=== PATIENT | female | born 1995 | race Caucasian/White ===

== ENCOUNTER 2024-08-09 10:12 | Outpatient (AMB) | payer BC, SELFPAY ==
--- OUTSIDE RECORDS SUMMARY | 2024-08-09 10:14 | XMS_ITS ---
Author Name [facility] Organization Unknown History of Medication Use Medication Directions Dispensed Refills Start Date End Date Stat Nortrel , 28, 1-35 MG-MCG per tablet Take 1 tablet by mouth daily. 05/03/2023 active predniSONE (DELTASONE) 20 MG tablet Take 2 tablets (40 mg total) by mouth daily. 05/03/2023 active Problems Problem Status Onset Date Problem Type Date of Resoluti on Source [facility]
--- NOTE | 2024-08-09 10:21 | MHC.OFFWIV ---
Intake Vital Signs 08/09/24 10:53 Height 5 ft 6 in Weight 154 lb BMI 24.9 BP 110/70 Blood Pressure Location Rt brachial Position Sitting Pulse 76 Pulse Source Pulse Oximeter Temp 98.0 F Temp Source Oral Pulse Oximetry (%) 98 Oxygen Delivery Method Room Air Intake Visit Reasons: sore throat/ chest congestion Intake Note: pt is here for sore throat and congestion Patient Tobacco Use Status: Never used Tobacco Allergies No Known Allergies Allergy (Verified 08/09/24 11:18) Medication List - Last Reconciled 08/09/24 by Jennifer Guthrie, [facility]- norethindrone-ethin estradiol 1-35 mg-mcg ([place]) 1 tab PO DAILY Do you need a note to return to daycare/school/sports/work: No HPI HPI Comments History of Present Illness Details History of Present Illness The patient is a 28-year-old female presenting with sore throat and chest congestion. The symptoms began recently and initially started with a sore throat, which progressed to chest congestion. The patient notes a scratchy quality to her sore throat, rather than pain. She reports potential exposure to family members who were ill during the holidays and attendance at a high school reunion, suggesting possible viral exposure. The patient took an [id number] medication for chest congestion at approximately 8:45 am on the day of the visit. She did not receive a flu vaccination this season. Additionally, the patient mentions that her wisdom tooth is erupting, contributing to her discomfort. She denies history of asthma and noted that she does not have an active cough, but experiences occasional coughing fits. The medication taken has provided limited relief, and the patient refrains from using other concurrent medications to avoid interactions. There are no reports of exposure to individuals with known respiratory illnesses such as influenza or COVID-19. Exam Awake alert NAD Sclera and conjunctiva clear bilat Nares patent, turbinates within normal limits, no sinus tenderness with palpation bilat TM intact and clear bilat MMM, pharynx mild erythema Negative strep test RRR LS CTAB Plan - Diagnosis of Viral Upper Respiratory Infection: Symptomatic management recommended with plenty of fluids to thin secretions and facilitate clearance. Use of nasal saline suggested for nasal congestion management. - Prescription of Tessalon Perles for cough suppression; advise not to combine with sqbu-dsw-ygfisly cough medications. Tessalon can be taken three times daily as needed. - Advice on maintaining hydration to assist in managing congestion. - Instruct to monitor for worsening symptoms, high fever, or persistence beyond 14 days, which may necessitate reevaluation for possible secondary bacterial infection. - Erupting [place] Tooth: Acknowledge patient?s discomfort; no immediate dental intervention required but recommended patient monitor symptoms as tooth continues to erupt. Patient was informed and verbally consented to the use of an ambient scribe for clinic note documentation during this visit. [facility] Social History Patient Tobacco Use Status: Never used Tobacco Physical Exam Vital Signs: Last Vital Signs Temp 98.0 F 08/09/24 10:53 Pulse 76 08/09/24 10:53 BP 110/70 08/09/24 10:53 Pulse Ox 98 08/09/24 10:53 Oxygen Delivery Method Room Air 08/09/24 10:53 BMI result Body Mass Index 24.9 Results AMB Rapid Strep AMB Rapid Strep Negative Last Edit by Joe Montalvo CMA on 08/09/24 11:04 Results Reviewed Results Reviewed: Laboratory Last Values Strep Scn Rapid Clinic Negative 08/09/24 11:03 Assessment & Plan Assessment & Plan (1) Nasopharyngitis: Code(s): J00 - Acute nasopharyngitis [common cold] Plan . Orders: Orders AMB Rapid Strep Screen Today Z13.9 - Encounter for screening, unspecified Medications: New benzonatate 100 mg PO TID 10 days PRN 30 caps 1RF cough Coding Level of Care Code Est Pt Level 3 (90364) Diagnoses Nasopharyngitis J00
[2024-08-09 10:53] VITALS: BP 110/70; PULSE 76; TEMP 36.7; O2SAT 98; BMI 24.9
== END 2024-08-09 11:27 | disposition home or self-care (01) ==
LOC: HO.HMCWIW 10:12
PROVIDERS: PCP Nurse Practitioner Family; Visit Provider Nurse Practitioner Family
DX: J00 Acute nasopharyngitis [common cold] (principal); Z13.9 Encounter for screening, unspecified

== ENCOUNTER → 2024-08-09 10:12 | Outpatient (BNVA) | payer BC, SELFPAY | PROVIDERS: PCP Nurse Practitioner Family; Visit Provider Nurse Practitioner Family | DX: J00 Acute nasopharyngitis [common cold] (principal) | CPT/HCPCS: 87880 ==

== ENCOUNTER 2025-01-19 08:25 | Outpatient (AMB) | payer BC, SELFPAY ==
--- NOTE | 2025-01-19 08:28 | A.OFFPC_ITS ---
Vital Signs 01/19/25 08:35 Height 5 ft 6 in Weight 150 lb BMI 24.2 BP 98/66 Blood Pressure Location Lt brachial Position Sitting Respiration 12 Pulse 64 Pulse Source Pulse Oximeter Temp 97.6 F Temp Source Oral Pulse Oximetry (%) 99 Oxygen Delivery Method Room Air Intake Visit Reasons: CPE Intake Note: New patient to establish care and cpe Sifter Operator Required: No Allergies No Known Allergies Allergy (Verified 01/19/25 08:40) Medication List - Last Reconciled 01/19/25 by Jennifer Guthrie, [facility]- norethindrone-ethin estradiol 1-35 mg-mcg (Alyacen) 1 tab PO DAILY Tobacco use date assessed: 01/19/25 Dental Screening Dental Screen Date: 01/19/25 Did you have a dental visit in the last 12 months?: Yes Did you have a dental problem in the last 6 months where you did not have access to dental care?: No Was dental information given to patient?: Patient has dentist HPI HPI Comments History of Present Illness Details 29 y/o F with family hx of skin ca (mom) otherwise healthy. Fhx: Dad HLD, MGM with aortic anuersym, Mom skin ca, MGF , PGF alive; PGM alive. Siblings 1 brother alive and well. No Children. Surgery: Sully tooth extraction Social: work in [employer]; lives w/ boyfriend. Health Maintenance Tdap updated today Pap December 2024 Dr Luna * [facility] Dentist Derm History of Present Illness - The patient is a 29-year-old female pr esenting for the establishment of care and routine health maintenance. -Previous PCP [facility], records rec'd a nd reviewed - Family history: Skin cancer (mother), aortic aneurysm (maternal grandmother). - Mole on her hairline reported, new 1 y ear ago; no changes observed. - Historical wisdom teeth removal; no ot her surgeries. - No known medication allergies; only us ing control. - Denies significant ongoing health issu es; desires dermatology assessment due to family history. Past Surgical History - Sully teeth extraction Family History - Mother: History of skin cancer - Maternal grandmother: Aortic aneurysm - Father: Hyperlipidemia - Father: No confirmed history of prosta te cancer - Paternal uncle: Varicose veins Social History - Works in [employer] - Resides with her boyfriend. - Recently attended college in [place]. - Activities include playing softball. - No reports of tobacco or alcohol use. Health Maintenance - Pap smear confirmed as normal; monitor ed by OBGYN. Review of Systems - Dermatologic: Reports a stable mole at her hairline. - Cardiovascular: Denies chest pain, navya rtness of breath. - Surgical: Denies other surgeries besid es wisdom teeth removal. - Respiratory: Denies shortness of breat h. - General: Denies current health concern s. Physical Exam General: Well developed, well nourished, in no acute distress. Appears stated age. Head: Normocephalic, atraumatic. Eyes: Pupils are equal, round and reactive to light and accommodation. Conjunctivae are clear. Vision grossly normal. Ears: TMs clear AU, EACS WNL Nose: Patent, without discharge. Neck: Supple, no adenopathy or thyromegaly. Breast: Edu on SBE. Patient could be better at self-exams; advised to perform one week after period or on a set date each month. Lungs: Clear to auscultation bilaterally. No rales, rhonchi or wheeze noted. Good air flow in all husain. Heart: Regular rate and rhythm. No murmurs, click, rubs or gallops are noted. Abdomen: Bowel sounds present in all quadrants. The abdomen is soft, nontender, with no masses or organomegaly noted. No hernias are noted. : Deferred. Reviewed recommendations for routine ROAD CONDUCTOR. Pulses: Peripheral pulses are equal and palpable bilaterally. Nice strong pulses noted in legs. Extremities: No clubbing, cyanosis nor edema is noted. Neurologic: Gait and station normal. Cranial Nerves 2-12 intact. Motor strength grossly symmetrical and intact. No sensory loss. Balance normal. Skin: No rashes, ulcers, or lesions noted. Turgor is good. Skin color is good. Hair and nails are without abnormalities. Noted a mole on the hairline and a pale mole on the back; dermatology referral made for further evaluation. Psych: Normal eye contact, affect and mood appropriate, and normal interactions. Patient is alert and appropriate to context. Results Pending Discussion Notes Emphasizing her maternal legacy involving skin cancer, there was a significant conversation centered around connecting her with a molder labels for routine surveillance to monitor potentially hereditary risks. I also reviewed her vaccination status and recommended a tetanus booster since it had been over ten years. I explained the importance of scheduling periodic baseline labs?targeting cholesterol, diabetes markers, and essential vitamins?to maintain her overall health. The patient was shown how to navigate our patient portal to access lab results and stay in communication with our facility. Additionally, I discussed the preventive value of self-breast exams and the recent concern about a mole on her hairline, reassuring her about seeking dermatologic consultation for thorough evaluation. Assessment and Plan Family history of aortic aneurysm - Record history; monitor if necessary. Denies any sx; Mom negative for AAA. - Tetanus shot last updated in 2007; rec ommended update today. - Dermatology referral for a routine ski n check due to the family history of skin cancer. - Baseline screening labs recommended: c holesterol, diabetes screening, blood count, thyroid, kidney, liver, B12, and vitamin D. - Encouraged to consider self-breast exa mination regularly after periods. Patient Instructions - Schedule a dermatology appointment for a safe skin evaluation. - Consider a tetanus booster for updated immunization. - Follow up on recommended labs. - Regularly check skin, especially moles . - Download portal [place] for communication and result access. - Keep hydrated, incorporating balanced nutrition and moderate exercise. RTO 1 YEAR CPE, SOONER PRN Consent Patient was informed and verbally consented to the use of an ambient scribe for clinic note documentation during this visit. An additional 20 minutes was spent addressing the problem(s) noted at todays visit. This includes time spent before the visit reviewing the chart, time spent during the visit, and time spent after the visit on documentation reviewing laboratory results, diagnostic imaging, medications, performing a medically necessary evaluation, counseling on diagnoses, care coordination, ordering appropriate tests, ordering appropriate medications, review of tests performed by other providers, reporting test results with the patient, communication with other healthcare providers. [facility] Medical History (Updated 01/19/25 @ 08:54 by [facility] No pertinent past medical history Surgical History (Updated 01/19/25 @ 08:38 by Denisse Loaiza MA) No pertinent past surgical history Family History (Updated 01/19/25 @ 08:39 by Denisse Loaiza MA) Father High cholesterol Mother Skin cancer Social History (Updated 01/19/25 @ 08:39 by Denisse Loaiza MA) Household Members: Significant Other Housing: House Are you a primary urgent care nurse practitioner to a significant other at home: No Do you presently have visiting nurse or other home services: No Alcohol intake: current Alcohol intake frequency: a few times a month Patient Tobacco Use Status: Never used Tobacco e-Cigarette/Vaping Use: Never Used Second Hand Smoke Exposure: No Current occupational status: employed Current occupation: accounting Cognitive needs: No Hearing needs: No Vision needs: Yes (wear glasses) Questionnaire PHQ-9 Over the last 2 weeks, how often have you been bothered by any of the following problems? 1. Little interest or pleasure in doing things: not at all 2. Feeling down, depressed, or hopeless: not at all 3. Trouble falling or staying asleep, or sleeping too much: not at all 4. Feeling tired or having little energy: not at all 5. Poor appetite or overeating: not at all 6. Feeling bad about yourself - or that you are a failure or have let yourself or your family down: not at all 7. Trouble concentrating on things, such as reading the newspaper or watching television: not at all 8. Moving or speaking so slowly that other people could have noticed. Or the opposite - being so fidgety or restless that you have been moving around a lot more than usual: not at all 9. Thoughts that you would be better off or of hurting yourself in some way: not at all Total score: 0 Depression Screening Interpretation: Negative Depression Screening Done: Yes 49344 - PHQ-9 Billing: Yes Source: Developed by Drs. Karlos Thomas, Natasha Acuña, Baldev Joseph and colleagues, with an educational darnell from [facility] EHR. Thrive Questionnaire Date Thrive assessed: 01/19/25 I am a: Patient What is your living situation today?: I have a steady place to live Within the past 12 months, did the food you bought not last and you didn't have the money to get more?: Never true Within the past 12 months, did you worry whether your food would run out before you got money to buy more?: Never true Do you have trouble paying for medicines?: No Do you have trouble getting transportation to medical appointments?: No Do you have trouble paying your heating and electricity bill?: No Do you have trouble taking care of your child, family member or friend?: No Do you have trouble with day-to-day activities such as bathing, preparing meals, shopping, managing finances, etc.?: No Are you currently unemployed and looking for a job?: No Are you interested in more education?: No Please select the resources that you would like help with: None Currently or been in a relationship where the following occur: No concerns reported THRIVE Score: 0 AUDIT C Alcohol Use Questionnaire (AUDIT-C) 1. How often do you have a drink containing alcohol?: 2-4 times a month 2. How many drinks containing alcohol do you have on a typical day when you are drinking?: 3 or 4 3. How often do you have six or more drinks on one occasion?: Less than monthly Total Score: 4 Score Reviewed/Action Taken: Yes CALEB-7 AMB Questionnaire CALEB-7 Date CALEB - 7 assessed: 01/19/25 Feeling nervous, anxious, or on edge: 1 = Several days Not being able to stop or control worryin = Not at all Worrying too much about different things: 0 = Not at all Trouble relaxin = Not at all Being so restless that it is hard to sit still: 0 = Not at all Becoming easily annoyed or irritable: 1 = Several days Feeling afraid as if something awful might happen: 0 = Not at all Total CALEB-7 score (0-4 normal; 5-9 mild; 10-14 moderate; 15-21 severe): 2 Source: Developed by Drs. Karlos Thomas, Natasha Acuña, Baldev Joseph and colleagues, with an educational darnell from [facility] EHR. CALEB-7 Assessment Billing CALEB-7 Assessment Tool: CALEB-7 Assessment 51871 Physical exam (Primary Care) Vital Signs: Last Vital Signs Temp 97.6 F 01/19/25 08:35 Pulse 64 01/19/25 08:35 Resp 12 01/19/25 08:35 BP 98/66 01/19/25 08:35 Pulse Ox 99 01/19/25 08:35 Oxygen Delivery Method Room Air 01/19/25 08:35 BMI result Body Mass Index 24.2 Tobacco/Smoking Status: Tobacco use Status Tobacco use date assessed 01/19/25 01/19/25 08:32 Patient Tobacco Use Status Never used Tobacco 01/19/25 08:39 e-Cigarette/Vaping Use Never Used 01/19/25 08:39 PHQ-9: PHQ-9 Score PHQ-9: Total score 0 01/19/25 08:45 Depression Screening Interpretation: Negative Thrive Assessment: Date of Thrive Assessment Date Thrive assessed 01/19/25 01/19/25 08:32 Currently or been in a relationship where the following occur: No concerns reported Coding Level of Care Code New Pt Level 2 (47716) New Pt Prev Care 18-39yr(92933 Diagnoses Encounter to establish care with new doctor Z76.89 Family history of skin cancer Z80.8 Family history of aortic aneurysm Z82.49 Laboratory exam ordered as part of routine general medical examination Z00.00 Need for Tdap vaccination Z23 Additional Codes CALEB-7 Assessment Billing - CALEB-7 Assessment Tool: CALEB-7 Assessment 37553 ([id number]) PHQ-9 - 68749 - PHQ-9 Billing: Yes ([id number]) Assessment & Plan Assessment & Plan (1) Encounter to establish care with new doctor: Code(s): Z76.89 - Persons encountering health services in other specified circumstances (2) Family history of skin cancer: Comment: Mom - nonmelanoma Code(s): Z80.8 - Family history of malignant neoplasm of other organs or systems Category: Medical (3) Family history of aortic aneurysm: Comment: MG Code(s): Z82.49 - Family history of ischemic heart disease and other diseases of the circulatory system Category: Medical (4) Laboratory exam ordered as part of routine general medical examination: Code(s): Z00.00 - Encounter for general adult medical examination without abnormal findings Category: Medical (5) Need for Tdap vaccination: Code(s): Z23 - Encounter for immunization Category: Medical Plan . Orders: Orders Comprehensive Met. Panel Today Z00.00 - Encounter for general adult medical examination without abnormal findings Ferritin Today Z00.00 - Encounter for general adult medical examination without abnormal findings Hemoglobin A1c Today Z00.00 - Encounter for general adult medical examination without abnormal findings Lipid Panel Today Z00.00 - Encounter for general adult medical examination without abnormal findings TSH reflex Free T4 Today Z00.00 - Encounter for general adult medical examination without abnormal findings Vitamin D 25-OH Total Today Z00.00 - Encounter for general adult medical examination without abnormal findings Complete Blood Count no Diff Today Z00.00 - Encounter for general adult medical examination without abnormal findings Vitamin B12 and Folate Today Z00.00 - Encounter for general adult medical examination without abnormal findings TDaP Immunization Today Z23 - Encounter for immunization Referrals Dermatology Referral Z80.8 - Family history of malignant neoplasm of other organs or systems Medications: New Boostrix Tdap (diphth,pertus(acell),tetanus) 0.5 mL IM ONCE 0.5 mL 0RF NS Z23 - Encounter for immunization Patient Instructions: Walk-In Care (Urgent Care): We Make it Easy Walk-in for urgent medical issues such as: ? Seasonal Allergies ? Insect Bites ? Cough ? Diarrhea ? Acute Asthma Attacks ? Back, Knee or Joint Pain ? Ear Infection ? Fever without a Rash ? Headaches ? Nausea ? [place] [facility], Rash or Skin Irritation ? Sore Throat ? Sports Physicals ? Vomiting Most insurances are accepted. Patients do not need to be part of the [facility] to seek care at the walk-in clinic. Locations [facility] , [place] [address] ? [phone] [facility] Walk-In Care in [place] provides services to ages 18 and over. Open Thursday-Thursday: 8 a.m. to 5 p.m. and Thursday: 9 a.m. to 3 p.m.* *Hours may vary due to staffing availability. To confirm Walk-In Care hours in [place], please call [phone]. [address] [place] [address] ? [phone] [facility] Walk-In Care in [place] provides services to ages 12 and over. Open Thursday-Thursday: 8 a.m. to 5 p.m. Hours may vary due to staffing availability. To confirm Walk-In Care hours in [place], please call [phone]. LABORATORY SERVICES: [facility] Lab ? Primary Location [address] [place] [address] Thursday through Thursday 6:00 AM ? 5:00 PM Thursday 7:00 AM ? 11:00 AM* [phone] The [facility] Lab is centrally located near the front entrance of the [facility] for easy outpatient access. Convenient parking is provided for outpatients. *Hours may vary due to staffing availability. To confirm Laboratory hours for any location, please call [phone]. Offsite Location For your convenience, we offer offsite laboratory draw stations at the following locations: [address] [facility], [place] ? [facility] [address], [address], [place] Thursday through Thursday 7:30 AM ? 1:00 PM* [phone] *Hours may vary due to staffing availability. To confirm Laboratory hours for any location, please call [phone]. [place] ? [facility] [address] [facility] Thursday through Thursday 6:00 AM ? 3:30 PM* Thursday 6:30 AM ? 3 PM* [phone] *Hours may vary due to staffing availability. To confirm Laboratory hours for any location, please call [phone] [place] [address] Thursday through Thursday 7:30 AM ? 4:00 PM* [phone] *Hours may vary due to staffing availability. To confirm Laboratory hours for any location, please call [phone] [place] [address] Thursday through 9:00 AM ? 4:00 PM* *Hours may vary due to staffing availability. To confirm Laboratory hours for any location, please call [phone]. Appointments are not necessary. Walk-ins are welcome. Like all the departments throughout the [facility], our Lab undergoes frequent reviews to ensure the quality and accuracy of test results, and our staff takes special pride in its status as a nationally accredited facility. Patient Portal: ONE PATIENT. ONE RECORD. BETTER CARE. [facility] has a fully integrated, cutting- edge mobile electronic health information system that has revolutionized the way we care for our patients and manage our organization. This system improves communication and coordination enabling us to provide safe, higher-quality care, and an overall positive experience for staff and patients. Our first priority, as always, is to deliver the highest quality care possible. The system is running in the background supporting that priority. This portal is for all [facility] services and practices. If you are experiencing any technical difficulties with enrolling or logging into the Patient Portal please complete the [facility] Patient Portal Technical Support Form. [facility] now offers a new secure on-line interactive tool for patients to review their health information ? ?Patient Portal. This interactive web portal will enable patients and their families to take an active role in their care by providing easy, secure access to their health information via the internet. The Patient Portal provides patients with instant access to their health information, including laboratory results, medications, allergies, demographic information, visit history, and more. In addition to managing their own care, parents and health care proxies with authorized consent will appreciate the a bility to access the records of those individuals for whom they provide care. Please note: if you wish to gain access (Proxy) to another patient?s portal, you will be required to come to the Medical Records Department in person at [facility]. Both the patient giving proxy access and the proxy will need to provide photo identification and complete the appropriate authorization. The Patient Portal also allows track their appointments online. The [facility] Patient Portal also saves patients time by allowing them to submit updates to their demographic and contact information prior to their visits. Portal email notifications will also alert patients to any new activity on their portal, such as test results and new appointments. In order to initially enroll in the [facility] Patient Portal, you will need to enter some required information including the following: * your [facility] Medical Record number * your personal home email address * name * date of Please note: In order to enroll in the [facility] Patient Portal, we need to have your email address on file in your electronic medical record. ?The email address needs to be specific for one person (yourself) in order for your Portal enrollment to be successful. ?You can update your email address in person with our Registration staff when you are registering for a hospital visit. ?Otherwise, you will need to come to the Health Information Management (Medical Records) Department at [facility]. ?We are open from Thursday ? Thursday from 7:30 a.m. ? 4:30 p.m. ?You will be required to present a photo id. Once you have successfully enrolled in the Patient Portal, you will receive a one-time user id and password for the Portal, sent to your email address. ?This will allow you to log into the Patient Portal within 99 hrs and reset your own logon id and password, and define personal security questions. ?Once your permanent login and password have been set, you can log into the [facility] Patient Portal at any time via the blue button above or from the Portal Logon button on any page of the [facility] website. [facility] encourage all of our patients to enroll in Patient Portal as it presents a valuable opportunity for patients and their families to actively participate in their care and stay healthy Welcome to [facility]. ?We look forward to working with you. Health screenings for women You should visit your health care provider from time to time, even if you are healthy. The purpose of these visits is to: Screen for medical issues Assess your risk for future medical problems Encourage a healthy lifestyle Update vaccinations and other preventive care services Help you get to know your provider in case of an illness Information Even if you feel fine, you should still see your provider for regular checkups. These visits can help you avoid problems in the future. For example, the only way to find out if you have high blood pressure is to have it checked regularly. High blood sugar and high cholesterol levels also may not have any symptoms in the early stages. A simple blood test can check for these conditions. There are specific times when you should see your provider or receive specific health screenings. The [place] Preventive Services Task Force publishes a list of recommended screenings. Below are screening guidelines for women ages 18 to 39. BLOOD PRESSURE SCREENING Your blood pressure should be checked at least once every 3 to 5 years if: Your blood pressure is in the normal range (top number less than 120 mm Hg and bottom number less than 80 mm Hg) You don't have risk factors for high blood pressure Ask your provider if you need your blood pressure checked more often if: The top number is 120 to 129 mm Hg or the bottom number is 70 to 79 mm Hg You have diabetes, heart disease, kidney problems, are overweight, or have certain other health conditions You have a first-degree relative with high blood pressure You are Black You had high blood pressure during a If the top number is 130 mm Hg or greater or the bottom number is 80 mm Hg or greater, this is considered stage 1 hypertension. Schedule an appointment with your provider to learn how you can reduce your blood pressure. Watch for blood pressure screenings in your area. Ask your provider if you can stop in to have your blood pressure checked. BREAST CANCER SCREENING Experts do not agree about the benefits of breast self-exams in finding breast cancer or saving lives. Talk to your provider about what is best for you. A screening mammogram is not recommended for most women under age 40. Your provider may discuss and recommend mammograms, MRI scans, or ultrasounds if you have an increased risk for breast cancer, such as: A mother or sister who had breast cancer at a young age (most often starting screening earlier than the age the close relative was diagnosed) You carry a high-risk genetic marker CERVICAL CANCER SCREENING Cervical cancer screening should start at age 21 years unless your provider advises otherwise. After the first test: Women ages 21 through 29 should have a Pap test every 3 years. Exoprts do not agree on whether HPV testing is recommended for this age group. Women ages 30 through 65 should be screened with either a Pap test every 3 years or the HPV test every 5 years or both tests every 5 years (called cotesting ). Women who have been treated for precancer (cervical dysplasia) should continue to have Pap tests for 20 years after treatment or until age 65, whichever is longer. If you have had your uterus and cervix removed (total hysterectomy), and you have not been diagnosed with cervical cancer or precancer (high grade cervical neoplasia), you do not need cervical cancer screening. CHOLESTEROL SCREENING Cholesterol screening should begin at: Age 45 for women with no known risk factors for coronary heart disease Age 20 for women with known risk factors for coronary heart disease Repeat cholesterol screening should take place: Every 5 years for women with normal cholesterol levels More often if changes occur in lifestyle (including weight gain and diet) More often if you have diabetes, heart disease, kidney problems, or certain other conditions DIABETES SCREENING You should be screened for diabetes starting at age 35 and then repeated every 3 years if you have no risk factors for diabetes. Screening may need to start earlier and be repeated more often if you have other risk factors for diabetes, such as: You have a first degree relative with diabetes. You are overweight or have obesity. You have high blood pressure, prediabetes, or a history of heart disease. Screening for diabetes should be done if you are planning to become and you are overweight and have other risk factors such as high blood pressure. DENTAL EXAM Go to the dentist once or twice every year for an exam and cleaning. Your dentist will evaluate if you need more frequent visits. EYE EXAM Have an eye exam every 5 to 10 years before age 40. If you have vision problems, have an eye exam every 2 years or more often if recommended by your provider. You should have an eye exam that includes an examination of your retina (back of your eye) at least every year if you have diabetes. IMMUNIZATIONS Commonly needed vaccines include: Flu shot: get one every year. COVID-19 vaccine: ask your provider what is best for you. Tetanus-diphtheria and acellular pertussis (Tdap) vaccine: have one at or after age 19 as one of your tetanus-diphtheria vaccines if you did not receive it as an adolescent. Tetanus-diphtheria: have a booster (or Tdap) every 10 years. Varicella vaccine: receive 2 doses if you never had chickenpox or the varicella vaccine. Hepatitis B vaccine: receive 2, 3, or 4 doses, depending on your exact circumstances. Measles, mumps, and rubella (MMR) vaccine: receive 1 to 2 doses if you are not already immune to MMR. Your provider can tell you if you are immune. Ask your provider about the human papillomavirus (HPV) vaccine if: You have not received the HPV vaccine in the past You have not completed the full vaccine series (you should catch up on this shot) Ask your provider if you should receive other immunizations if you have certain health problems that increase your risk for some diseases such as pneumonia. INFECTIOUS DISEASE SCREENING Women who are sexually active should be screened for chlamydia and gonorrhea up until age 25. Women 25 years and older should be screened for chlamydia and gonorrhea if at high risk. Screening for hepatitis C: All adults ages 18 to 79 should get a one-time test for hepatitis C. people should be screened at every . Screening for human immunodeficiency virus (HIV): All people ages 15 to 65 should get a one-time test for HIV. Depending on your lifestyle and medical history, you may also need to be screened for infections such as syphilis and HIV, as well as other infections. PHYSICAL EXAM All adults should visit their provider from time to time, even if they are healthy. The purpose of these visits is to: Screen for disease Assess your risk of future medical problems Encourage a healthy lifestyle Update your vaccinations and other preventive care services Maintain a relationship with a provider in case of an illness Your height, weight, and BMI should be checked at every exam. During your exam, your provider may ask you about: Depression and anxiety Diet and exercise Alcohol and tobacco use Safety issues, such as using seat belts, smoke detectors, and intimate partner violence Your medicines and risk for interactions SKIN SELF-EXAM Your provider may check your skin for signs of skin cancer, especially if you're at high risk, such as if you: Have had skin cancer before Have close relatives with skin cancer Have a weakened immune system OTHER SCREENING Talk with your provider about colon cancer screening if you have a strong family history of colon cancer or polyps, or if you have had inflammatory bowel disease or polyps yourself. Routine bone density screening of women under 40 is not recommended.
[2025-01-19 08:35] VITALS: BP 98/66; PULSE 64; RESP 12; TEMP 36.4; O2SAT 99; BMI 24.2
--- OUTSIDE RECORDS SUMMARY | 2025-01-19 08:36 | XMS_ITS | Encounter Summary ---
Author Organization [facility] Address [address] [place] [phone] Phone Care Team Providers Care Food Sanitarian Name Role Phone Karlos Godinez MD Primary Care Provider [phone] Encounter Details Date Type Department Care Team (Late st Contact Info) Description 12/27/2017 Conversion Encounter [facility] [address] [place] [address] Karlos Godinez MD [address] [place] [address] Social History Tobacco Use Types Packs/Day Years Used Date Smoking Tobacco: Never Assessed Comments Unknown Sex and Gender Information Value Date Recorded Sex Assigned at Not on file Legal Sex Female 6:16 PM EDT Gender Identity Not on file Sexual Orientation Not on file documented as of this encounter Plan of Treatment Not on file documented as of this encounter Visit Diagnoses Not on filedocumented in this encounter Care Teams Food Sanitarian Relationship Specialty Start Date End Date Karlos Godinez MD [address] [place] [address] PCP - General 12/16/17 09/18/24 documented as of this encounter
== END 2025-01-19 09:06 | disposition home or self-care (01) ==
PROVIDERS: PCP Nurse Practitioner Family; Visit Provider Nurse Practitioner Family
DX: Z00.00 Encounter for general adult medical examination without abnormal findings (principal); D22.5 Melanocytic nevi of trunk; Z76.89 Persons encountering health services in other specified circumstances; Z80.8 Family history of malignant neoplasm of other organs or systems; Z82.49 Family history of ischemic heart disease and other diseases of the circulatory system; Z23 Encounter for immunization

== ENCOUNTER → 2025-01-19 08:25 | Outpatient (BNVA) | payer BC, SELFPAY | PROVIDERS: PCP Nurse Practitioner Family; Visit Provider Nurse Practitioner Family | DX: Z00.00 Encounter for general adult medical examination without abnormal findings (principal); Z23 Encounter for immunization; Z80.0 Family history of malignant neoplasm of digestive organs; Z82.49 Family history of ischemic heart disease and other diseases of the circulatory system; Z76.89 Persons encountering health services in other specified circumstances | CPT/HCPCS: 90471; 90715; 96127 ==

== ENCOUNTER 2025-01-19 09:48 | Outpatient (REF) | payer BC, SELFPAY ==
[2025-01-19 11:31] LABS: Hematocrit 38.8 % (37.0-47.0); Hemoglobin 12.4 g/dl (12.0-16.0); Mean Corpuscular Hemoglobin 27.2 pg (27.0-33.0); Mean Corpuscular Volume 85.1 fL (80.0-98.0); Mean Platelet Volume 9.7 fL (9.4-12.3); Platelet Count 298 X10*3/uL (160-400); Red Blood Count 4.56 X10*6/uL (4.20-5.50); Red Cell Distribution Width 13.4 % (11.0-16.0); White Blood Count 6.4 X10*3/uL (4.8-10.8)
[2025-01-19 11:34] LABS: Estimated Average Glucose 100 mg/dL; Hemoglobin A1c % 5.1 % (<6.0)
[2025-01-19 11:49] LABS: Alanine Aminotransferase 21 U/L (0-31); Albumin Level 4.3 g/dL (3.5-5.0); Alkaline Phosphatase 38 U/L (39-117); Anion Gap 9 (12-20); Aspartate Amino Transferase 23 U/L (5-31); Bilirubin Total 0.4 mg/dL (0.0-1.0); Blood Urea Nitrogen 12 mg/dL (9-16); Calcium 9.1 mg/dL (8.4-10.2); Carbon Dioxide 27 mmol/L (22-29); Chloride 108 mmol/L (96-108); Cholesterol 137 mg/dL (<200); Estimated Glomerular Filt Rate > 60; Glucose Random 94 mg/dL (60-115); HDL Cholesterol 56 mg/dL (>40); LDL Cholesterol Calculated 68 mg/dL (<100); Potassium 3.9 mmol/L (3.3-5.1); Sodium 140 mmol/L (135-145); Total Protein 6.6 g/dL (6.5-8.0); Triglycerides 68 mg/dL (<150)
[2025-01-19 12:08] LABS: Ferritin 16 ng/mL (10-122); TSH reflex Free T4 0.92 uIU/mL (0.32-4.0); Vitamin D 25-OH Total 97.9 ng/mL (>30)
[2025-01-19 12:13] LABS: Folate 12.2 ng/mL (> or = 4.0); Vitamin B12 288 pg/mL (200-900)
== END 2025-01-19 09:49 | disposition home or self-care (01) ==
LOC: HO.WFDLDS 09:48
PROVIDERS: Visit Provider Nurse Practitioner Family
DX: Z00.00 Encounter for general adult medical examination without abnormal findings (principal)
CPT/HCPCS: 36415; 80053; 80061; 82306; 82607; 82728; 82746; 83036; 84443; 85027